=== PATIENT | male | born 1980 | race Caucasian/White ===

== ENCOUNTER 2021-01-29 14:24 | Inpatient (IN) ==
[2021-01-29] MEDS ORDERED: *HR* Promethazine 25 MG/ML VIAL IM PRN (17:48)
[2021-01-29] MEDS ORDERED: Melatonin 3 MG TABLET PO PRN (17:48)
[2021-01-29] MEDS ORDERED: Acetaminophen 325 MG TABLET PO PRN (17:48)
[2021-01-29] MEDS ORDERED: *HR* HYDROcodone/Acet 5/325 mg TABLET PO PRN (17:48)
[2021-01-29] MEDS ORDERED: Ondansetron 4 MG/2 ML VIAL IVP PRN (17:48)
[2021-01-29] MEDS ORDERED: Naloxone 0.4 MG/ML INJ IVP PRN (17:48)
[2021-01-29] MEDS ORDERED: Dextrose Gel 15 GM/37.5 ML TUBE PO PRN ×2 (17:53)
[2021-01-29] MEDS ORDERED: *HR* Dextrose 50 % in Water (Vial) 50 ML VIAL IVP PRN (17:53)
[2021-01-29] MEDS ORDERED: D5% in Water 1,000 ML IVC PRN (17:53)
[2021-01-29] MEDS ORDERED: Remdesivir 200 MG in 0.9 % Sodium Chloride 100 ML IVPB ONE (19:00)
[2021-01-29] MEDS: Insulin LISPRO 300 UNITS/3 ML VIAL SUBQ SCH (20:56)
[2021-01-30] MEDS: *HR* Enoxaparin 40 MG/0.4 ML SYRINGE SQ SCH (05:53)
[2021-01-30 07:27] LABS: Basophils % 0.2 %; Immature Granulocytes % 0.6 % (0-4); Lymphocytes # 3.7 K/mcL (0.6-4.6); Lymphocytes % 28.6 %; Mean Corpuscular HGB Conc 32.7 g/dL (31.6-35.5); Mean Corpuscular Hemoglobin 28.6 pg (28.0-33.3); Mean Corpuscular Volume 87.7 fL (83.0-100.0); Mean Platelet Volume 10.1 fL (9.4-12.4); Monocytes # 0.4 K/mcL (0.0-1.3); Monocytes % 2.8 %; Neutrophils # 8.8 K/mcL (1.6-8.9); Platelet Count 191 K/mcL (140-400); Red Blood Count 5.59 M/mcL (4.19-5.50); Red Cell Distribution Width 15.2 % (11.5-14.5); Segmented Neutrophils % 67.8 %; White Blood Count 12.9 K/mcL (4.3-11.1)
[2021-01-30 07:37] LABS: INR 1.1; Prothrombin Time 12.4 Seconds (9.4-12.1)
[2021-01-30 07:52] LABS: Alanine Aminotransferase 38 Units/L (7-52); Albumin/Globulin Ratio 1.2 (1.1-2.2); Alkaline Phosphatase 45 Units/L (34-104); Aspartate Amino Transferase 57 Units/L (13-39); BUN/Creatinine Ratio 23 (6-26); Bilirubin,Direct 0.1 mg/dL (0.0-0.2); Bilirubin,Indirect 0.4 mg/dL (0.0-1.0); Bilirubin,Total 0.5 mg/dL (0.3-1.0); Blood Urea Nitrogen 22 mg/dL (6-20); Carbon Dioxide 21 mEq/L (23-29); Chloride 103 mEq/L (98-107); Globulin 3.4 g/dL (2.4-3.5); Glucose 103 mg/dL (70-105); Lactate Dehydrogenase 389 Units/L (140-271); Magnesium 2.5 mg/dL (1.6-2.6); Osmolality,Calculated 292 (280-300); Phosphorous 4.2 mg/dL (2.7-4.5); Potassium 4.2 mEq/L (3.5-5.1); Sodium 139 mEq/L (136-145); Total Protein 7.4 g/dL (6.4-8.9); eGFR For African Americans > 60 (> 60); eGFR For Non-African Americans > 60 (> 60)
[2021-01-30] MEDS: Insulin LISPRO 300 UNITS/3 ML VIAL SUBQ SCH ×4 (08:03→21:21)
[2021-01-30 08:04] LABS: Ferritin 1099 ng/mL (20-250)
[2021-01-30] MEDS: lisinopriL 5 MG TABLET PO SCH (08:08)
[2021-01-30] MEDS: Aspirin Enteric Coated 81 MG Tablet PO SCH (08:08)
[2021-01-30] MEDS: Dexamethasone Sodium Phos/PF 10 MG/ML VIAL IVP SCH (08:08)
[2021-01-30] MEDS: (Empagliflozin [Jardiance] 25 MG Tablet) PO SCH (08:08)
[2021-01-30] MEDS ORDERED: OXcarbazepine 150 MG TABLET PO SCH (09:00)
[2021-01-30] MEDS: OXcarbazepine 150 MG TABLET PO SCH ×2 (09:36→21:26)
[2021-01-30 10:22] LABS: C-Reactive Protein 118 mg/L (Less than 10); Calcium 8.7 mg/dL (8.6-10.3)
[2021-01-30] MEDS: Ipratropium 1 PUFF INHALER IH SCH ×3 (10:56→20:37)
[2021-01-30] MEDS: Remdesivir 100 MG in 0.9 % Sodium Chloride 100 ML IVPB SCH (18:03)
[2021-01-31] MEDS: Ipratropium 1 PUFF INHALER IH SCH ×7 (00:03→23:01)
[2021-01-31 05:22] LABS: Alanine Aminotransferase 35 Units/L (7-52); Albumin 3.7 g/dL (3.5-5.7); Albumin/Globulin Ratio 1.2 (1.1-2.2); Alkaline Phosphatase 44 Units/L (34-104); Aspartate Amino Transferase 52 Units/L (13-39); BUN/Creatinine Ratio 28 (6-26); Bilirubin,Total 0.5 mg/dL (0.3-1.0); Blood Urea Nitrogen 25 mg/dL (6-20); Calcium 8.7 mg/dL (8.6-10.3); Carbon Dioxide 19 mEq/L (23-29); Chloride 105 mEq/L (98-107); Globulin 3.2 g/dL (2.4-3.5); Glucose 129 mg/dL (70-105); Osmolality,Calculated 292 (280-300); Potassium 4.5 mEq/L (3.5-5.1); Sodium 138 mEq/L (136-145); Total Protein 6.9 g/dL (6.4-8.9); eGFR For African Americans > 60 (> 60); eGFR For Non-African Americans > 60 (> 60)
[2021-01-31] MEDS: *HR* Enoxaparin 40 MG/0.4 ML SYRINGE SQ SCH (05:25)
[2021-01-31] MEDS: Insulin LISPRO 300 UNITS/3 ML VIAL SUBQ SCH ×4 (08:54→21:11)
[2021-01-31] MEDS: (Empagliflozin [Jardiance] 25 MG Tablet) PO SCH (09:17)
[2021-01-31] MEDS: OXcarbazepine 150 MG TABLET PO SCH ×2 (09:28→19:54)
[2021-01-31] MEDS: lisinopriL 5 MG TABLET PO SCH (09:28)
[2021-01-31] MEDS: atenoloL 25 MG TABLET PO SCH (09:28)
[2021-01-31] MEDS: Aspirin Enteric Coated 81 MG Tablet PO SCH (09:28)
[2021-01-31] MEDS: Dexamethasone Sodium Phos/PF 10 MG/ML VIAL IVP SCH (09:30)
[2021-01-31 12:02] LABS: Basophils % 0.2 %; Hematocrit 45.7 % (37.5-50.1); Hemoglobin 15.2 g/dL (12.9-16.9); Immature Granulocytes % 0.5 % (0-4); Lymphocytes # 1.8 K/mcL (0.6-4.6); Lymphocytes % 15.2 %; Mean Corpuscular HGB Conc 33.3 g/dL (31.6-35.5); Mean Corpuscular Hemoglobin 29.1 pg (28.0-33.3); Mean Corpuscular Volume 87.5 fL (83.0-100.0); Mean Platelet Volume 10.5 fL (9.4-12.4); Monocytes # 0.4 K/mcL (0.0-1.3); Monocytes % 3.5 %; Neutrophils # 9.6 K/mcL (1.6-8.9); Platelet Count 230 K/mcL (140-400); Red Blood Count 5.22 M/mcL (4.19-5.50); Segmented Neutrophils % 80.6 %; White Blood Count 11.9 K/mcL (4.3-11.1)
[2021-01-31] MEDS: Remdesivir 100 MG in 0.9 % Sodium Chloride 100 ML IVPB SCH (19:54)
[2021-02-01] MEDS: Ipratropium 1 PUFF INHALER IH SCH ×5 (03:53→20:20)
[2021-02-01 05:06] LABS: Basophils % 0.2 %; Hematocrit 46.2 % (37.5-50.1); Hemoglobin 15.3 g/dL (12.9-16.9); Immature Granulocytes % 0.8 % (0-4); Lymphocytes # 1.7 K/mcL (0.6-4.6); Lymphocytes % 12.1 %; Mean Corpuscular HGB Conc 33.1 g/dL (31.6-35.5); Mean Corpuscular Hemoglobin 28.7 pg (28.0-33.3); Mean Corpuscular Volume 86.7 fL (83.0-100.0); Mean Platelet Volume 10.1 fL (9.4-12.4); Monocytes # 0.4 K/mcL (0.0-1.3); Monocytes % 3.2 %; Neutrophils # 11.7 K/mcL (1.6-8.9); Platelet Count 241 K/mcL (140-400); Red Blood Count 5.33 M/mcL (4.19-5.50); Red Cell Distribution Width 14.6 % (11.5-14.5); Segmented Neutrophils % 83.7 %; White Blood Count 13.9 K/mcL (4.3-11.1)
[2021-02-01] MEDS: *HR* Enoxaparin 40 MG/0.4 ML SYRINGE SQ SCH (05:13)
[2021-02-01 05:24] LABS: Alanine Aminotransferase 30 Units/L (7-52); Albumin 3.6 g/dL (3.5-5.7); Albumin/Globulin Ratio 1.1 (1.1-2.2); Alkaline Phosphatase 47 Units/L (34-104); Aspartate Amino Transferase 37 Units/L (13-39); BUN/Creatinine Ratio 30 (6-26); Bilirubin,Total 0.6 mg/dL (0.3-1.0); Blood Urea Nitrogen 23 mg/dL (6-20); Calcium 8.5 mg/dL (8.6-10.3); Carbon Dioxide 20 mEq/L (23-29); Chloride 106 mEq/L (98-107); Globulin 3.4 g/dL (2.4-3.5); Glucose 151 mg/dL (70-105); Lactate Dehydrogenase 362 Units/L (140-271); Osmolality,Calculated 293 (280-300); Potassium 4.4 mEq/L (3.5-5.1); Sodium 138 mEq/L (136-145); eGFR For African Americans > 60 (> 60); eGFR For Non-African Americans > 60 (> 60)
[2021-02-01 05:41] LABS: Ferritin 1096 ng/mL (20-250)
[2021-02-01] MEDS: (Empagliflozin [Jardiance] 25 MG Tablet) PO SCH (09:23)
[2021-02-01] MEDS: Aspirin Enteric Coated 81 MG Tablet PO SCH (09:34)
[2021-02-01] MEDS: lisinopriL 5 MG TABLET PO SCH (09:34)
[2021-02-01] MEDS: OXcarbazepine 150 MG TABLET PO SCH ×2 (09:34→20:04)
[2021-02-01] MEDS: atenoloL 25 MG TABLET PO SCH (09:34)
[2021-02-01] MEDS: Dexamethasone Sodium Phos/PF 10 MG/ML VIAL IVP SCH (09:35)
[2021-02-01] MEDS: Insulin LISPRO 300 UNITS/3 ML VIAL SUBQ SCH ×4 (09:38→20:08)
[2021-02-01] MEDS ORDERED: Furosemide 20 MG/2 ML VIAL IVP ONE (13:39)
[2021-02-01] MEDS: Remdesivir 100 MG in 0.9 % Sodium Chloride 100 ML IVPB SCH (20:04)
[2021-02-02] MEDS: Ipratropium 1 PUFF INHALER IH SCH ×6 (00:38→20:27)
[2021-02-02] MEDS: *HR* Enoxaparin 40 MG/0.4 ML SYRINGE SQ SCH (04:53)
[2021-02-02 06:55] LABS: Basophils % 0.3 %; Eosinophils % 0.1 %; Hematocrit 46.5 % (37.5-50.1); Hemoglobin 15.7 g/dL (12.9-16.9); Immature Granulocytes % 1.1 % (0-4); Lymphocytes # 1.7 K/mcL (0.6-4.6); Lymphocytes % 13.8 %; Mean Corpuscular HGB Conc 33.8 g/dL (31.6-35.5); Mean Corpuscular Volume 85.8 fL (83.0-100.0); Mean Platelet Volume 9.9 fL (9.4-12.4); Monocytes # 0.5 K/mcL (0.0-1.3); Monocytes % 3.8 %; Platelet Count 274 K/mcL (140-400); Red Blood Count 5.42 M/mcL (4.19-5.50); Red Cell Distribution Width 14.6 % (11.5-14.5); Segmented Neutrophils % 80.9 %; White Blood Count 12.4 K/mcL (4.3-11.1)
[2021-02-02 07:08] LABS: Alanine Aminotransferase 26 Units/L (7-52); Albumin 3.8 g/dL (3.5-5.7); Albumin/Globulin Ratio 1.3 (1.1-2.2); Alkaline Phosphatase 52 Units/L (34-104); Aspartate Amino Transferase 30 Units/L (13-39); BUN/Creatinine Ratio 33 (6-26); Bilirubin,Total 0.8 mg/dL (0.3-1.0); Blood Urea Nitrogen 28 mg/dL (6-20); Carbon Dioxide 20 mEq/L (23-29); Chloride 105 mEq/L (98-107); Glucose 168 mg/dL (70-105); Osmolality,Calculated 293 (280-300); Sodium 137 mEq/L (136-145); Total Protein 6.8 g/dL (6.4-8.9); eGFR For African Americans > 60 (> 60); eGFR For Non-African Americans > 60 (> 60)
[2021-02-02] MEDS: Aspirin Enteric Coated 81 MG Tablet PO SCH (09:32)
[2021-02-02] MEDS: atenoloL 25 MG TABLET PO SCH (09:32)
[2021-02-02] MEDS: Dexamethasone Sodium Phos/PF 10 MG/ML VIAL IVP SCH (09:32)
[2021-02-02] MEDS: lisinopriL 5 MG TABLET PO SCH (09:32)
[2021-02-02] MEDS: OXcarbazepine 150 MG TABLET PO SCH ×2 (09:32→19:36)
[2021-02-02] MEDS: (Empagliflozin [Jardiance] 25 MG Tablet) PO SCH (09:33)
[2021-02-02] MEDS: Insulin LISPRO 300 UNITS/3 ML VIAL SUBQ SCH ×4 (09:34→20:15)
[2021-02-02 10:55] LABS: Calcium 8.4 mg/dL (8.6-10.3)
[2021-02-02] MEDS: Furosemide 20 MG/2 ML VIAL IVP SCH (12:40)
[2021-02-02] MEDS: Remdesivir 100 MG in 0.9 % Sodium Chloride 100 ML IVPB SCH (18:18)
[2021-02-03] MEDS: Ipratropium 1 PUFF INHALER IH SCH ×6 (00:04→22:54)
[2021-02-03 01:28] LABS: Basophils # 0.1 K/mcL (0.0-0.2); Basophils % 0.5 %; Eosinophils % 0.1 %; Hematocrit 48.6 % (37.5-50.1); Immature Granulocytes % 1.8 % (0-4); Lymphocytes # 2.7 K/mcL (0.6-4.6); Lymphocytes % 19.1 %; Mean Corpuscular HGB Conc 32.9 g/dL (31.6-35.5); Mean Corpuscular Hemoglobin 28.5 pg (28.0-33.3); Mean Corpuscular Volume 86.6 fL (83.0-100.0); Mean Platelet Volume 10.3 fL (9.4-12.4); Monocytes # 0.5 K/mcL (0.0-1.3); Monocytes % 3.2 %; Neutrophils # 10.7 K/mcL (1.6-8.9); Platelet Count 323 K/mcL (140-400); Red Blood Count 5.61 M/mcL (4.19-5.50); Red Cell Distribution Width 14.3 % (11.5-14.5); Segmented Neutrophils % 75.3 %; White Blood Count 14.2 K/mcL (4.3-11.1)
[2021-02-03 01:59] LABS: Alanine Aminotransferase 29 Units/L (7-52); Albumin 3.7 g/dL (3.5-5.7); Albumin/Globulin Ratio 1.1 (1.1-2.2); Alkaline Phosphatase 51 Units/L (34-104); Aspartate Amino Transferase 29 Units/L (13-39); BUN/Creatinine Ratio 29 (6-26); Bilirubin,Total 0.6 mg/dL (0.3-1.0); Blood Urea Nitrogen 26 mg/dL (6-20); Calcium 8.7 mg/dL (8.6-10.3); Carbon Dioxide 23 mEq/L (23-29); Chloride 101 mEq/L (98-107); Globulin 3.3 g/dL (2.4-3.5); Glucose 171 mg/dL (70-105); Osmolality,Calculated 291 (280-300); Potassium 4.3 mEq/L (3.5-5.1); Sodium 136 mEq/L (136-145); eGFR For African Americans > 60 (> 60); eGFR For Non-African Americans > 60 (> 60)
[2021-02-03] MEDS: *HR* Enoxaparin 40 MG/0.4 ML SYRINGE SQ SCH (05:14)
[2021-02-03] MEDS: Insulin LISPRO 300 UNITS/3 ML VIAL SUBQ SCH ×4 (08:53→20:33)
[2021-02-03] MEDS: OXcarbazepine 150 MG TABLET PO SCH ×2 (08:54→20:32)
[2021-02-03] MEDS: Furosemide 20 MG/2 ML VIAL IVP SCH (08:55)
[2021-02-03] MEDS: Dexamethasone Sodium Phos/PF 10 MG/ML VIAL IVP SCH (08:55)
[2021-02-03] MEDS: atenoloL 25 MG TABLET PO SCH (08:57)
[2021-02-03] MEDS: lisinopriL 5 MG TABLET PO SCH (08:57)
[2021-02-03] MEDS: Aspirin Enteric Coated 81 MG Tablet PO SCH (08:57)
[2021-02-03] MEDS: (Empagliflozin [Jardiance] 25 MG Tablet) PO SCH (09:11)
[2021-02-03 10:09] LABS: D-Dimer 715 ng/mLFEU (0-500); Fibrinogen 751 mg/dL (169-393)
[2021-02-03 10:19] LABS: Ferritin 752 ng/mL (20-250)
[2021-02-03 17:58] LABS: C-Reactive Protein 23 mg/L (Less than 10)
[2021-02-04] MEDS: Ipratropium 1 PUFF INHALER IH SCH ×6 (00:54→19:57)
[2021-02-04 01:51] LABS: Basophils # 0.1 K/mcL (0.0-0.2); Basophils % 0.4 %; Eosinophils # 0.1 K/mcL (0.0-0.6); Eosinophils % 0.3 %; Hematocrit 46.7 % (37.5-50.1); Hemoglobin 16.2 g/dL (12.9-16.9); Immature Granulocytes % 2.3 % (0-4); Lymphocytes # 1.9 K/mcL (0.6-4.6); Lymphocytes % 11.1 %; Mean Corpuscular HGB Conc 34.7 g/dL (31.6-35.5); Mean Corpuscular Hemoglobin 29.6 pg (28.0-33.3); Mean Corpuscular Volume 85.4 fL (83.0-100.0); Mean Platelet Volume 10.1 fL (9.4-12.4); Monocytes # 0.5 K/mcL (0.0-1.3); Monocytes % 2.8 %; Neutrophils # 13.8 K/mcL (1.6-8.9); Platelet Count 323 K/mcL (140-400); Red Blood Count 5.47 M/mcL (4.19-5.50); Red Cell Distribution Width 14.2 % (11.5-14.5); Segmented Neutrophils % 83.1 %; White Blood Count 16.7 K/mcL (4.3-11.1)
[2021-02-04 02:10] LABS: Alanine Aminotransferase 32 Units/L (7-52); Albumin 3.6 g/dL (3.5-5.7); Albumin/Globulin Ratio 1.1 (1.1-2.2); Alkaline Phosphatase 55 Units/L (34-104); Aspartate Amino Transferase 31 Units/L (13-39); BUN/Creatinine Ratio 32 (6-26); Bilirubin,Total 0.9 mg/dL (0.3-1.0); Blood Urea Nitrogen 25 mg/dL (6-20); Calcium 8.5 mg/dL (8.6-10.3); Carbon Dioxide 22 mEq/L (23-29); Chloride 102 mEq/L (98-107); Globulin 3.4 g/dL (2.4-3.5); Glucose 183 mg/dL (70-105); Osmolality,Calculated 285 (280-300); Potassium 4.1 mEq/L (3.5-5.1); Sodium 133 mEq/L (136-145); eGFR For African Americans > 60 (> 60); eGFR For Non-African Americans > 60 (> 60)
[2021-02-04] MEDS: *HR* Enoxaparin 40 MG/0.4 ML SYRINGE SQ SCH (05:37)
[2021-02-04] MEDS: Dexamethasone Sodium Phos/PF 10 MG/ML VIAL IVP SCH (09:28)
[2021-02-04] MEDS: lisinopriL 5 MG TABLET PO SCH (09:29)
[2021-02-04] MEDS: Furosemide 20 MG/2 ML VIAL IVP SCH (09:29)
[2021-02-04] MEDS: atenoloL 25 MG TABLET PO SCH (09:29)
[2021-02-04] MEDS: Aspirin Enteric Coated 81 MG Tablet PO SCH (09:29)
[2021-02-04] MEDS: (Empagliflozin [Jardiance] 25 MG Tablet) PO SCH (09:31)
[2021-02-04] MEDS: OXcarbazepine 150 MG TABLET PO SCH ×2 (09:31→21:20)
[2021-02-04] MEDS: Insulin LISPRO 300 UNITS/3 ML VIAL SUBQ SCH ×4 (09:32→21:18)
[2021-02-05] MEDS: Ipratropium 1 PUFF INHALER IH SCH ×6 (00:23→19:51)
[2021-02-05] MEDS: *HR* Enoxaparin 40 MG/0.4 ML SYRINGE SQ SCH (05:24)
[2021-02-05] MEDS: Insulin LISPRO 300 UNITS/3 ML VIAL SUBQ SCH ×4 (08:28→20:55)
[2021-02-05] MEDS: lisinopriL 5 MG TABLET PO SCH (08:28)
[2021-02-05] MEDS: OXcarbazepine 150 MG TABLET PO SCH ×2 (08:28→20:43)
[2021-02-05] MEDS: atenoloL 25 MG TABLET PO SCH (08:28)
[2021-02-05] MEDS: Aspirin Enteric Coated 81 MG Tablet PO SCH (08:28)
[2021-02-05] MEDS: Dexamethasone Sodium Phos/PF 10 MG/ML VIAL IVP SCH (08:29)
[2021-02-05] MEDS: Furosemide 20 MG/2 ML VIAL IVP SCH (08:29)
[2021-02-05 12:33] LABS: Basophils # 0.1 K/mcL (0.0-0.2); Basophils % 0.5 %; Eosinophils % 0.1 %; Hematocrit 46.4 % (37.5-50.1); Hemoglobin 15.5 g/dL (12.9-16.9); Immature Granulocytes % 2.4 % (0-4); Lymphocytes % 6.6 %; Mean Corpuscular HGB Conc 33.4 g/dL (31.6-35.5); Mean Corpuscular Hemoglobin 28.7 pg (28.0-33.3); Mean Corpuscular Volume 85.8 fL (83.0-100.0); Mean Platelet Volume 10.3 fL (9.4-12.4); Monocytes # 0.3 K/mcL (0.0-1.3); Neutrophils # 13.1 K/mcL (1.6-8.9); Platelet Count 362 K/mcL (140-400); Red Blood Count 5.41 M/mcL (4.19-5.50); Red Cell Distribution Width 14.3 % (11.5-14.5); Segmented Neutrophils % 88.4 %; White Blood Count 14.8 K/mcL (4.3-11.1)
[2021-02-05 13:01] LABS: Alanine Aminotransferase 36 Units/L (7-52); Albumin 3.6 g/dL (3.5-5.7); Alkaline Phosphatase 60 Units/L (34-104); Aspartate Amino Transferase 32 Units/L (13-39); BUN/Creatinine Ratio 25 (6-26); Bilirubin,Total 0.9 mg/dL (0.3-1.0); Blood Urea Nitrogen 20 mg/dL (6-20); Carbon Dioxide 23 mEq/L (23-29); Chloride 97 mEq/L (98-107); Globulin 3.5 g/dL (2.4-3.5); Glucose 332 mg/dL (70-105); Osmolality,Calculated 284 (280-300); Potassium 4.6 mEq/L (3.5-5.1); Sodium 129 mEq/L (136-145); Total Protein 7.1 g/dL (6.4-8.9); eGFR For African Americans > 60 (> 60); eGFR For Non-African Americans > 60 (> 60)
[2021-02-05] MEDS ORDERED: Menthol 1 EACH LOZENGE PO PRN (21:04)
[2021-02-06] MEDS: Ipratropium 1 PUFF INHALER IH SCH ×6 (00:50→20:11)
[2021-02-06 02:26] LABS: Basophils # 0.1 K/mcL (0.0-0.2); Basophils % 0.4 %; Eosinophils # 0.2 K/mcL (0.0-0.6); Eosinophils % 1.1 %; Hematocrit 44.3 % (37.5-50.1); Hemoglobin 14.8 g/dL (12.9-16.9); Immature Granulocytes % 2.9 % (0-4); Lymphocytes # 1.9 K/mcL (0.6-4.6); Lymphocytes % 11.8 %; Mean Corpuscular HGB Conc 33.4 g/dL (31.6-35.5); Mean Corpuscular Volume 86.7 fL (83.0-100.0); Mean Platelet Volume 10.3 fL (9.4-12.4); Monocytes # 0.5 K/mcL (0.0-1.3); Monocytes % 3.1 %; Neutrophils # 12.6 K/mcL (1.6-8.9); Platelet Count 339 K/mcL (140-400); Red Blood Count 5.11 M/mcL (4.19-5.50); Red Cell Distribution Width 14.3 % (11.5-14.5); Segmented Neutrophils % 80.7 %; White Blood Count 15.7 K/mcL (4.3-11.1)
[2021-02-06 02:46] LABS: Alanine Aminotransferase 57 Units/L (7-52); Albumin 3.3 g/dL (3.5-5.7); Albumin/Globulin Ratio 0.9 (1.1-2.2); Alkaline Phosphatase 58 Units/L (34-104); Aspartate Amino Transferase 51 Units/L (13-39); BUN/Creatinine Ratio 27 (6-26); Bilirubin,Total 0.7 mg/dL (0.3-1.0); Blood Urea Nitrogen 20 mg/dL (6-20); Calcium 8.5 mg/dL (8.6-10.3); Carbon Dioxide 23 mEq/L (23-29); Chloride 101 mEq/L (98-107); Globulin 3.6 g/dL (2.4-3.5); Glucose 161 mg/dL (70-105); Osmolality,Calculated 280 (280-300); Potassium 3.9 mEq/L (3.5-5.1); Sodium 132 mEq/L (136-145); Total Protein 6.9 g/dL (6.4-8.9); eGFR For African Americans > 60 (> 60); eGFR For Non-African Americans > 60 (> 60)
[2021-02-06] MEDS: *HR* Enoxaparin 40 MG/0.4 ML SYRINGE SQ SCH (04:52)
[2021-02-06] MEDS: Dexamethasone Sodium Phos/PF 10 MG/ML VIAL IVP SCH (08:58)
[2021-02-06] MEDS: Furosemide 20 MG/2 ML VIAL IVP SCH (08:58)
[2021-02-06] MEDS: Insulin LISPRO 300 UNITS/3 ML VIAL SUBQ SCH ×4 (08:58→20:26)
[2021-02-06] MEDS: Aspirin Enteric Coated 81 MG Tablet PO SCH (08:59)
[2021-02-06] MEDS: lisinopriL 5 MG TABLET PO SCH (08:59)
[2021-02-06] MEDS: atenoloL 25 MG TABLET PO SCH (08:59)
[2021-02-06] MEDS: OXcarbazepine 150 MG TABLET PO SCH ×2 (08:59→20:25)
[2021-02-06] MEDS ORDERED: *HR* LORazepam 0.5 MG TABLET PO PRN (10:59)
[2021-02-06 11:06] LABS: Fibrinogen 832 mg/dL (169-393)
[2021-02-06 11:10] LABS: D-Dimer 1402 ng/mLFEU (0-500)
[2021-02-06 11:14] LABS: Lactate Dehydrogenase 288 Units/L (140-271)
[2021-02-06 11:23] LABS: C-Reactive Protein 77 mg/L (Less than 10)
[2021-02-06 11:33] LABS: Ferritin 849 ng/mL (20-250)
[2021-02-06] MEDS ORDERED: Isovue-370 500 ML BOTTLE IVP ONE (11:39)
[2021-02-07] MEDS: Ipratropium 1 PUFF INHALER IH SCH ×4 (00:18→11:23)
[2021-02-07 03:11] LABS: Basophils # 0.1 K/mcL (0.0-0.2); Basophils % 0.4 %; Eosinophils # 0.2 K/mcL (0.0-0.6); Eosinophils % 1.2 %; Hematocrit 42.3 % (37.5-50.1); Hemoglobin 14.1 g/dL (12.9-16.9); Immature Granulocytes % 2.5 % (0-4); Lymphocytes # 1.7 K/mcL (0.6-4.6); Lymphocytes % 11.5 %; Mean Corpuscular HGB Conc 33.3 g/dL (31.6-35.5); Mean Corpuscular Hemoglobin 28.8 pg (28.0-33.3); Mean Corpuscular Volume 86.3 fL (83.0-100.0); Mean Platelet Volume 10.5 fL (9.4-12.4); Monocytes # 0.7 K/mcL (0.0-1.3); Monocytes % 4.5 %; Neutrophils # 11.6 K/mcL (1.6-8.9); Platelet Count 354 K/mcL (140-400); Red Cell Distribution Width 14.3 % (11.5-14.5); Segmented Neutrophils % 79.9 %; White Blood Count 14.5 K/mcL (4.3-11.1)
[2021-02-07 03:25] LABS: Alanine Aminotransferase 58 Units/L (7-52); Albumin 3.2 g/dL (3.5-5.7); Albumin/Globulin Ratio 0.9 (1.1-2.2); Alkaline Phosphatase 57 Units/L (34-104); Aspartate Amino Transferase 37 Units/L (13-39); BUN/Creatinine Ratio 25 (6-26); Bilirubin,Total 0.6 mg/dL (0.3-1.0); Blood Urea Nitrogen 19 mg/dL (6-20); Calcium 8.5 mg/dL (8.6-10.3); Carbon Dioxide 24 mEq/L (23-29); Chloride 98 mEq/L (98-107); Globulin 3.4 g/dL (2.4-3.5); Glucose 179 mg/dL (70-105); Osmolality,Calculated 277 (280-300); Potassium 3.8 mEq/L (3.5-5.1); Sodium 130 mEq/L (136-145); Total Protein 6.6 g/dL (6.4-8.9); eGFR For African Americans > 60 (> 60); eGFR For Non-African Americans > 60 (> 60)
[2021-02-07] MEDS: *HR* Enoxaparin 40 MG/0.4 ML SYRINGE SQ SCH (05:50)
[2021-02-07 07:23] VITALS: BP 130/80; PULSE 92; TEMP 98.4
[2021-02-07] MEDS: Furosemide 20 MG/2 ML VIAL IVP SCH (09:22)
[2021-02-07] MEDS: OXcarbazepine 150 MG TABLET PO SCH (09:22)
[2021-02-07] MEDS: Aspirin Enteric Coated 81 MG Tablet PO SCH (09:22)
[2021-02-07] MEDS: Dexamethasone Sodium Phos/PF 10 MG/ML VIAL IVP SCH (09:22)
[2021-02-07] MEDS: lisinopriL 5 MG TABLET PO SCH (09:23)
[2021-02-07] MEDS: atenoloL 25 MG TABLET PO SCH (09:23)
[2021-02-07] MEDS: Insulin LISPRO 300 UNITS/3 ML VIAL SUBQ SCH ×3 (09:24→16:25)
[2021-02-07 14:03] VITALS: O2SAT 94
== END 2021-02-07 16:52 | disposition home or self-care (01) | DRG 177 ==
LOC: 3BNU → SUATTDRO 16:58 → 3BNU 17:09 → SUATTDRO 01-31 14:49
PROVIDERS: ADMIT Internal Medicine; ATTEND Family Medicine